=== PATIENT | female | born 1950 | race Caucasian/White ===

== ENCOUNTER 2018-10-25 19:59 | Emergency (ER) | payer MEDICARE, OTHER ==
[~2018-10-25] VITALS: Ht 162.6 cm; Wt 50.8 kg
--- NOTE | 2018-10-25 20:20 | NUR ---
PT BIB FROM HOME C/C BILATERAL LOWER BACK PAIN RADIATING TO FLANKS W/ "ABD DISCOMFORT" AND +NAUSEA,VOMITTING. PT WAS GIVEN PROPRANOLOL AT 1545. PT AOX4. RESP EVEN AND UNLABORED. PT ON MONITOR IN BED 1 WITH FAMILY AT BEDSIDE. WILL CONTINUE TO MONITOR.
[2018-10-25 20:46] LABS: BASOPHILS % (AUTO) 0.1 % (0.0-2.0); EOSINOPHILS % (AUTO) 0.2 % (0.0-6.0); HEMATOCRIT 40 % (33-45); HEMOGLOBIN 13.4 g/dL (11.5-14.8); LYMPHOCYTES # (AUTO) 0.2 /CMM (0.8-4.8); LYMPHOCYTES % (AUTO) 9.5 % (20.0-44.0); MEAN CORPUSCULAR HGB CONC 34 g/dl (31.0-36.0); MEAN CORPUSCULAR VOLUME 89 fL (82-100); MONOCYTES % (AUTO) 0.5 % (2.0-12.0); NEUTROPHILS # (AUTO) 1.7 /CMM (1.8-8.9); NEUTROPHILS % (AUTO) 89.7 % (43.0-81.0); PLATELET COUNT (AUTO) 184 /CMM (150-450); RED BLOOD CELL COUNT(AUTO) 4.48 MIL/uL (4.0-5.2)
[2018-10-25] MEDS ORDERED: ONDANSETRON HCL/PF 4 MG/2 ML VIAL ONE (20:50)
[2018-10-25] MEDS ORDERED: diphenhydrAMINE HCL 50 MG/ML VIAL ONE (20:50)
[2018-10-25] MEDS ORDERED: FAMOTIDINE/PF INJ 20 MG/2 ML VIAL IV ONE (20:51)
[2018-10-25 20:57] LABS: WHITE BLOOD COUNT (AUTO) 1.9 K/uL (4.3-11.0)
[2018-10-25] MEDS: diphenhydrAMINE HCL 50 MG/ML VIAL IV ONE (21:06)
[2018-10-25] MEDS: FAMOTIDINE/PF INJ 20 MG/2 ML VIAL IV ONE (21:06)
[2018-10-25] MEDS: IV NS 0.9% 1,000 ML BAG IV ONE (21:06)
[2018-10-25 21:07] VITALS: BP 88/58
[2018-10-25] MEDS: ONDANSETRON HCL/PF 4 MG/2 ML VIAL IVP ONE (21:07)
[2018-10-25 21:18] LABS: CALCIUM, SERUM 9.4 mg/dL (8.5-10.1); POTASSIUM 3.3 mmol/L (3.5-5.1)
[2018-10-25 21:23] LABS: ALBUMIN 3.8 g/dL (3.4-5.0); BILIRUBIN,DIRECT 0.1 mg/dL (0.0-0.2); BILIRUBIN,TOTAL 0.4 mg/dL (0.2-1.0); TOTAL PROTEIN, SERUM 7.3 g/dL (6.4-8.2)
[2018-10-25 21:28] LABS: LYMPHOCYTES % (MANUAL) 13 % (16-48); MONOCYTES % (MANUAL) 1 % (0-11.0); NEUTROPHILS % (MANUAL) 86 (42-76)
--- NOTE | 2018-10-25 21:45 | NUR ---
URINE COLLECTED AND SENT TO LAB
[2018-10-25 22:06] LABS: APPEARANCE,URINE CLEAR (CLEAR); BILIRUBIN,URINE NEGATIVE (NEGATIVE); BLOOD, URINE 1+ Ery/uL (NEGATIVE); COLOR,URINE YELLOW (YELLOW); KETONES,URINE NEGATIVE (NEGATIVE); LEUKOCYTE ESTERASE ,URINE NEGATIVE (NEGATIVE); NITRITE, URINE NEGATIVE (NEGATIVE); PH,URINE 5.5 (5.0-8.0); PROTEIN,URINE NEGATIVE (NEGATIVE); UGLUCOSE NEGATIVE (NEGATIVE); UROBILINOGEN,URINE 0.2 EU/dL (0.2)
[2018-10-25 22:27] LABS: WBC,URINE 0-2 /HPF (0-3)
[2018-10-25 22:28] LABS: BACTERIA,URINE Rare /HPF (None Seen); SQUAMOUS EPITHELIAL CELL,UR Few /HPF (None Seen)
--- NOTE | 2018-10-25 22:29 | NUR ---
RADIOLOGY AT BEDSIDE FOR CXR
--- NOTE | 2018-10-25 23:31 | NUR ---
IV removed. Catheter intact and site benign. Pressure and 4x4 applied to site. No bleeding noted.Patient discharged to home in stable condition. Written and verbal after care instructions given. Patient verbalizes understanding of instruction.
== END 2018-10-25 23:35 | disposition home or self-care (01) ==
LOC: ER 20:03
DX: T50.8X5A Adverse effect of diagnostic agents, initial encounter (principal); R11.2 Nausea with vomiting, unspecified; L29.8 Other pruritus; F43.9 Reaction to severe stress, unspecified; D72.819 Decreased white blood cell count, unspecified; E87.6 Hypokalemia; F41.9 Anxiety disorder, unspecified; Y92.89 Other specified places as the place of occurrence of the external cause; Z87.891 Personal history of nicotine dependence
CPT/HCPCS: 36415; 71045-TC; 80048-TC; 80076-TC; 81000-TC; 84484-TC; 85025-TC; 87400; J1200; J2405; J3490; J7030

== ENCOUNTER 2019-08-08 22:35 | Emergency (ER) | payer MEDICARE, OTHER ==
[~2019-08-08] VITALS: Ht 160 cm; Wt 49.0 kg
--- NOTE | 2019-08-08 22:35 | NUR ---
"BIB SELF C/O GENERALIZED HIVES S/P TAKING CIPRO DUE TO "FEELING SICK" WHEEZING HEARD BILATERALLY ON AUSCULTATION" PT AAOX4, -SOB, NAD NOTED, VSS, PENDING MD REYNOLDS
[2019-08-08] MEDS ORDERED: methylPREDNISolone SOD SUCC 125 MG/2ML VIAL ONE (22:44)
[2019-08-08] MEDS ORDERED: diphenhydrAMINE HCL 50 MG/ML VIAL ONE (22:44)
[2019-08-08] MEDS ORDERED: FAMOTIDINE/PF INJ 20 MG/2 ML VIAL IV ONE ×2 (22:46→23:00)
[2019-08-08] MEDS ORDERED: EPINEPHRINE (1:1000) 1 MG/ML AMPUL ONE (22:47)
[2019-08-08] MEDS ORDERED: EPINEPHRINE (1:1000) 1 MG/ML AMPUL SUBCUT ONE (23:00)
[2019-08-08] MEDS ORDERED: diphenhydrAMINE HCL 50 MG/ML VIAL IV ONE (23:00)
[2019-08-08] MEDS ORDERED: methylPREDNISolone SOD SUCC 125 MG/2ML VIAL IV ONE (23:00)
[2019-08-08 23:08] LABS: BASOPHILS % (AUTO) 0.4 % (0.0-2.0); EOSINOPHILS % (AUTO) 1.4 % (0.0-6.0); HEMATOCRIT 42 % (33-45); HEMOGLOBIN 13.9 g/dL (11.5-14.8); LYMPHOCYTES # (AUTO) 2.7 /CMM (0.8-4.8); LYMPHOCYTES % (AUTO) 22.2 % (20.0-44.0); MEAN CORPUSCULAR HGB CONC 33 g/dl (31.0-36.0); MEAN CORPUSCULAR VOLUME 89 fL (82-100); MONOCYTES # (AUTO) 0.9 /CMM (0.1-1.30); MONOCYTES % (AUTO) 7.4 % (2.0-12.0); NEUTROPHILS # (AUTO) 8.3 /CMM (1.8-8.9); NEUTROPHILS % (AUTO) 68.6 % (43.0-81.0); PLATELET COUNT (AUTO) 268 /CMM (150-450); RED BLOOD CELL COUNT(AUTO) 4.75 MIL/uL (4.0-5.2); WHITE BLOOD COUNT (AUTO) 12.1 K/uL (4.3-11.0)
[2019-08-08] MEDS ORDERED: ASPIRIN 81 MG TAB.CHEW ONE (23:16)
[2019-08-08] MEDS ORDERED: NITROGLYCERIN PACKET 1 GM PACKET ONE (23:16)
[2019-08-08] MEDS ORDERED: NITROGLYCERIN PACKET 1 GM PACKET TD ONE (23:30)
[2019-08-08] MEDS ORDERED: IV NS 0.9% 1,000 ML BAG IV ONE (23:30)
[2019-08-08] MEDS ORDERED: ASPIRIN 81 MG TAB.CHEW PO ONE (23:30)
[2019-08-08 23:34] LABS: ALANINE AMINOTRANSFERASE 15 U/L (12-78); ALBUMIN 3.7 g/dL (3.4-5.0); ALKALINE PHOSPHATASE 74 U/L (46-116); ASPARTATE AMINOTRANSFERASE 14 U/L (15-37); B-TYPE NATRIURETIC PEPTIDE < 5 PG/ML (0-125); BILIRUBIN,TOTAL 0.2 mg/dL (0.2-1.0); CALCIUM, SERUM 8.8 mg/dL (8.5-10.1); CARBON DIOXIDE 29 mmol/L (21-32); CHLORIDE 103 mmol/L (98-107); CREATININE 0.9 mg/dL (0.6-1.3); GLUCOSE 125 mg/dL (74-106); POTASSIUM 4.2 mmol/L (3.5-5.1); SODIUM SERUM 138 mmol/L (136-145); TOTAL PROTEIN, SERUM 7.4 g/dL (6.4-8.2); UREA NITROGEN, BLOOD 19 mg/dL (7-18)
--- NOTE | 2019-08-09 00:11 | NUR ---
Patient does not wish to proceed with medical care recommended by Dr. Crooks. Patient given information related to possible complications, up to and including , which could occur as a result of leaving the hospital at this time. Patient verbalizes understanding of risks involved due to leaving against medical advice. Patient has signed AMA form.
[2019-08-09 00:33] VITALS: BP 122/75
== END 2019-08-09 00:34 | disposition home or self-care (01) ==
LOC: ER 22:36
DX: R07.89 Other chest pain (principal); T36.8X5A Adverse effect of other systemic antibiotics, initial encounter; F17.210 Nicotine dependence, cigarettes, uncomplicated; E11.9 Type 2 diabetes mellitus without complications; F41.9 Anxiety disorder, unspecified; Z88.1 Allergy status to other antibiotic agents; Z71.6 Tobacco abuse counseling; Y92.89 Other specified places as the place of occurrence of the external cause
CPT/HCPCS: 36415; 71045; 80048; 80076; 83880; 84484; 85025; 85378; 93005; 96372; 96374; 96375; 99284; 99406; J0171; J1200; J2930; J3490; J7030

== ENCOUNTER 2023-05-09 22:21 | Emergency (ER) | payer MEDICARE, BC ==
[~2023-05-09] VITALS: Ht 154.9 cm; Wt 45.5 kg
[2023-05-09 23:37] VITALS: BP 129/91; TEMP 100.6; O2SAT 98
[2023-05-10] MEDS ORDERED: dexaMETHasone SOD PHOSPHATE 4 MG/ML VIAL IM ONE
[2023-05-10] MEDS ORDERED: IBUP-1953 PO (00:03)
[2023-05-10] MEDS ORDERED: ONDA4TAB5 PO (00:03)
[2023-05-10] MEDS ORDERED: TYL2T PO (00:03)
[2023-05-10] MEDS ORDERED: FAMO20TA8 PO (00:03)
[2023-05-10] MEDS ORDERED: dexaMETHasone SOD PHOSPHATE 10 MG/ML VIAL ONE (00:07)
== END 2023-05-10 00:16 | disposition home or self-care (01) ==
LOC: ER 22:30
DX: U07.1 COVID-19 (principal); F41.9 Anxiety disorder, unspecified; Z88.8 Allergy status to other drugs, medicaments and biological substances
CPT/HCPCS: 99283; 96372; J1100